=== PATIENT | female | born 1955 | race Hispanic/Latino ===

== ENCOUNTER 2017-03-13 06:30 | Day surgery (SDC) | payer MEDICARE ==
[~2017-03-13] VITALS: Ht 165.1 cm; Wt 88.9 kg
[~2017-03-13 06:30] MED LIST: AMITIZA8 MCG PO; CYMBALTA60 MG PO; GABAPENTIN100 MG PO; LIPITOR10 M1 PO; LOSARTAN POTASS50 MG PO; NAPROXEN250 MG PO; OMEPRAZOLE20 M2 PO; OXYCODONE HCL5 MG PO; PRAMIPEXOLE DIHY1 MG PO; PROAIR HFA108 MCG/AC; RANITIDINE150 M1 PO; TEMAZEPAM15 MG PO
[2017-03-13] MEDS ORDERED: PERCOCET 5/325M1 TAB PO (10:00)
[2017-03-13 10:24] VITALS: BP 144/63
== END 2017-03-13 10:40 | disposition home or self-care (01) ==
LOC: ORM 06:30
PROVIDERS: ATTEND Surgery
PROC: 0FT44ZZ Resection of Gallbladder, Percutaneous Endoscopic Approach (ICD-10-PCS; principal; 2017-03-13)
DX: K81.1 Chronic cholecystitis (principal); I10 Essential (primary) hypertension; J45.909 Unspecified asthma, uncomplicated
CPT/HCPCS: J2710; Q9967

== ENCOUNTER 2017-07-13 11:43 | Day surgery (SDC) | payer MEDICARE, MEDICAID ==
[~2017-07-13] VITALS: Ht 165.1 cm; Wt 92.5 kg
[~2017-07-13 11:43] MED LIST changes: +PERCOCET 5/325M1 TAB PO
[2017-07-13] MEDS ORDERED: LORATADINE10 M1 PO (12:18)
[2017-07-13] MEDS ORDERED: AMLODIPINE5 MG PO (12:18)
[2017-07-13] MEDS ORDERED: ROPINIROLE0.5 MG PO (12:18)
[2017-07-13] MEDS ORDERED: OXYBUTIN (12:19)
[2017-07-13 14:25] VITALS: BP 118/62
== END 2017-07-13 14:35 | disposition home or self-care (01) ==
LOC: ENDO 11:43 → ORM 15:00
PROVIDERS: ATTEND Internal Medicine Gastroenterology
PROC: 0D758ZZ Dilation of Esophagus, Via Natural or Artificial Opening Endoscopic (ICD-10-PCS; principal; 2017-07-13)
PROC: 0DB58ZX Excision of Esophagus, Via Natural or Artificial Opening Endoscopic, Diagnostic (ICD-10-PCS; 2017-07-13)
DX: K21.0 Gastro-esophageal reflux disease with esophagitis (principal); K22.2 Esophageal obstruction; K29.70 Gastritis, unspecified, without bleeding; Q40.8 Other specified congenital malformations of upper alimentary tract; K22.8 Other specified diseases of esophagus; K44.9 Diaphragmatic hernia without obstruction or gangrene; K59.00 Constipation, unspecified; I10 Essential (primary) hypertension; E78.00 Pure hypercholesterolemia, unspecified; Z86.010 Personal history of colon polyps

== ENCOUNTER 2022-04-20 20:40 | Emergency (ER) | payer MEDICARE, MEDICAID ==
[~2022-04-20] VITALS: Ht 165.1 cm; Wt 85.4 kg
[2022-04-20] VITALS (11 sets, daily range): BP systolic 119–140; BP diastolic 62–76
[~2022-04-20 20:40] MED LIST changes: +AMLODIPINE5 MG PO; +LORATADINE10 M1 PO; +OXYBUTIN; +ROPINIROLE0.5 MG PO
[2022-04-20 22:05] LABS: BASO% 0.5 % (0-3); EOS% 2.6 % (0-8); IMMATURE GRANULOCYTES 0.5 % (0.0-5.0); LYMPH% 37.9 % (15-41); MEAN CORPUSCULAR HGB 31.9 pG CALC (26.0-32.0); MEAN CORPUSCULAR HGB CONC 34.3 g/dL CAL (32.0-36.0); NEUT# 1.88 thou/uL (2.00-7.15); NEUT% 44.5 % (42-76); RED BLOOD COUNT 3.7 mill/uL (4.20-5.60); RED CELL DISTRI WIDTH 12.3 % (11.5-15.5)
[2022-04-20 22:09] LABS: HEMATOCRIT 34.4 % (37.0-47.0); HEMOGLOBIN 11.8 g/dl (12.0-16.0)
[2022-04-20 22:32] LABS: ALKALINE PHOSPHATASE 53 u/l (38-126); BILIRUBIN, TOTAL 0.5 mg/dL (0.02-1.3); BUN 9 mg/dL (8-23); BUN/CREATININE RATIO 13 (12-20 (CALC)); CARBON DIOXIDE 27 mmol/l (22-30); CHLORIDE 95 mmol/l (95-108); CREATININE 0.7 mg/dL (0.5-1.0); GFR FOR AFR.AMER. > 60 ML/MIN (>=60 (CALC)); GFR OTHER RACES > 60 ML/MIN (>=60 (CALC)); SGOT/AST 46 u/l (9-36); TOTAL PROTEIN 6.6 g/dL (6.3-8.2)
[2022-04-20 22:33] LABS: ANION GAP 9 (6-22 (CALC)); POTASSIUM 2.8 mmol/l (3.5-5.1); SODIUM 128 mmol/l (137-146)
[2022-04-20] MEDS ORDERED: TORADOL PO (23:10)
[2022-04-20] MEDS ORDERED: POTASSIUM CHLO20 ME1 PO (23:10)
== END 2022-04-20 23:50 | disposition home or self-care (01) ==
LOC: ED 20:40
PROVIDERS: Family Medicine
DX: R07.89 Other chest pain (principal); J06.9 Acute upper respiratory infection, unspecified; E87.6 Hypokalemia; I10 Essential (primary) hypertension

== ENCOUNTER 2022-11-04 23:15 | Emergency (ER) | payer MEDICARE, MEDICAID ==
[~2022-11-04] VITALS: Ht 165.1 cm; Wt 97.6 kg
[~2022-11-04 23:15] MED LIST changes: +POTASSIUM CHLO20 ME1 PO; +TORADOL PO
[2022-11-04 23:46] VITALS: BP 115/72
[2022-11-05 00:13] LABS: BASO% 0.5 % (0-3); EOS% 1.6 % (0-8); HEMATOCRIT 36.4 % (37.0-47.0); HEMOGLOBIN 12.3 g/dl (12.0-16.0); IMMATURE GRANULOCYTES 0.5 % (0.0-5.0); LYMPH% 35.5 % (15-41); MEAN CELL VOLUME 94.3 fL CALC (80.0-100.0); MEAN CORPUSCULAR HGB 31.9 pG CALC (26.0-32.0); MEAN CORPUSCULAR HGB CONC 33.8 g/dL CAL (32.0-36.0); MONO% 14.5 % (2-13); NEUT# 2.06 thou/uL (2.00-7.15); NEUT% 47.4 % (42-76); RED BLOOD COUNT 3.86 mill/uL (4.20-5.60)
[2022-11-05 00:27] LABS: ALBUMIN 4.3 g/dL (3.2-5.0); ALKALINE PHOSPHATASE 59 u/l (38-126); ANION GAP 13 (6-22 (CALC)); BILIRUBIN, TOTAL 0.6 mg/dL (0.02-1.3); BUN 8 mg/dL (8-23); BUN/CREATININE RATIO 11 (12-20 (CALC)); CARBON DIOXIDE 26 mmol/l (22-30); CHLORIDE 95 mmol/l (95-108); CREATININE 0.7 mg/dL (0.5-1.0); GFR FOR AFR.AMER. > 60 ML/MIN (>=60 (CALC)); GFR OTHER RACES > 60 ML/MIN (>=60 (CALC)); SGOT/AST 48 u/l (9-36); SODIUM 131 mmol/l (137-146); TOTAL PROTEIN 7.7 g/dL (6.3-8.2)
[2022-11-05 01:42] VITALS: BP 131/68
[2022-11-05 02:01] VITALS: BP 115/64
[2022-11-05] MEDS ORDERED: ALLEGRA-D 2424 HOUR PO (02:04)
[2022-11-05 02:12] VITALS: BP 115/64
== END 2022-11-05 02:19 | disposition home or self-care (01) ==
LOC: ED 23:15
PROVIDERS: Family Medicine
DX: J30.9 Allergic rhinitis, unspecified (principal); I10 Essential (primary) hypertension; E78.00 Pure hypercholesterolemia, unspecified; Z20.822 Contact with and (suspected) exposure to COVID-19